=== PATIENT | male | born 1985 | race Caucasian/White ===

== ENCOUNTER 2018-07-04 21:44 | Observation (INO) | payer MEDICAID ==
[2018-07-04] MEDS ORDERED: HYDROmorphONE/DILAUDID 2 MG/ML INJ IVP ONE (22:07)
[2018-07-04] MEDS ORDERED: NS 1,000 ML IV ONE (22:07)
[2018-07-04] MEDS ORDERED: ONDANSETRON 4 MG/2 ML VIAL IVP ONE (22:07)
[2018-07-04] MEDS ORDERED: HYDROmorphONE/DILAUDID 1 MG/ML INJ ONE (22:21)
[2018-07-05] MEDS ORDERED: HYDROCODONE/APAP 5/325 TAB PO PRN (03:21)
[2018-07-05] MEDS ORDERED: ACETAMINOPHEN 325 MG TAB PO PRN (03:21)
[2018-07-05] MEDS ORDERED: ONDANSETRON DISINTEGRATING 4 MG TAB PO PRN (03:21)
[2018-07-05] MEDS ORDERED: ONDANSETRON 4 MG/2 ML VIAL IVP PRN (03:21)
[2018-07-05] MEDS ORDERED: NS 1,000 ML IV SCH (03:30)
== END 2018-07-05 18:39 | disposition home health service (06) ==
DX: L97.121 Non-pressure chronic ulcer of left thigh limited to breakdown of skin (principal); M34.9 Systemic sclerosis, unspecified; D70.4 Cyclic neutropenia; I73.00 Raynaud's syndrome without gangrene
CPT/HCPCS: 73551; 97165; 97535; G0378